=== PATIENT | female | born 1960 | race Caucasian/White ===

== ENCOUNTER → 2018-03-25 | Outpatient (CLI) | payer OTHER ==
[~2018-03-25] MED LIST: SYNTHROID175 MCG PO
== END | disposition home or self-care (01) ==
LOC: MRI 13:25
DX: M25.572 Pain in left ankle and joints of left foot (principal); M25.562 Pain in left knee
CPT/HCPCS: 73718; 73721

== ENCOUNTER 2018-09-29 07:25 | Outpatient (CLI) | payer OTHER | END 2018-09-29 07:43 | disposition home or self-care (01) | LOC: RAD 07:25 | DX: M25.561 Pain in right knee (principal); M25.562 Pain in left knee | CPT/HCPCS: 73718 ==

== ENCOUNTER 2018-10-14 12:27 | Inpatient (IN) | payer OTHER ==
[~2018-10-14] VITALS: Ht 162.6 cm; Wt 90.7 kg
[2018-10-27] MEDS ORDERED: CALCIUM 500 +1 EAC2 PO (10:02)
[2018-10-27] MEDS ORDERED: JENTADUETO 2.51 EAC2 PO (10:02)
[2018-10-27] MEDS ORDERED: CRESTOR5 MG PO (10:02)
[2018-10-27] MEDS ORDERED: VITAMIN D35000 UNI1 PO (10:03)
[2018-10-27] MEDS ORDERED: VITAMIN E400 UNI6 PO (10:03)
== END 2018-11-05 15:20 | disposition home or self-care (01) | DRG 470 ==
LOC: O/R 11-03 07:52 → SURG 11-03 07:52 → SURH 11-03 13:30 → SURG 11-03 14:12
PROVIDERS: ADMIT Orthopaedic Surgery
PROC: 0SRD0J9 Replacement of Left Knee Joint with Synthetic Substitute, Cemented, Open Approach (ICD-10-PCS; principal; 2018-11-03 13:30)
DX: M17.12 Unilateral primary osteoarthritis, left knee (principal); D62 Acute posthemorrhagic anemia; E03.8 Other specified hypothyroidism; E11.9 Type 2 diabetes mellitus without complications; E78.00 Pure hypercholesterolemia, unspecified; E66.8 Other obesity

== ENCOUNTER → 2018-10-26 08:13 | Outpatient (CLI) | payer OTHER ==
[~2018-10-26 08:13] MED LIST changes: +CALCIUM 500 +1 EAC2 PO; +CRESTOR5 MG PO; +JENTADUETO 2.51 EAC2 PO; +VITAMIN D35000 UNI1 PO; +VITAMIN E400 UNI6 PO
== END | disposition home or self-care (01) ==
LOC: LAB 08:13
DX: D68.8 Other specified coagulation defects (principal); E78.2 Mixed hyperlipidemia; N39.0 Urinary tract infection, site not specified; R07.89 Other chest pain

== ENCOUNTER 2019-02-03 15:05 | Outpatient (CLI) | payer OTHER | END 2019-02-03 15:13 | disposition home or self-care (01) | LOC: RAD 15:05 | DX: M17.12 Unilateral primary osteoarthritis, left knee (principal) ==

== ENCOUNTER 2019-02-27 07:38 | Outpatient (CLI) | payer OTHER | END 2019-02-27 08:19 | disposition home or self-care (01) | LOC: LAB 07:38 | DX: I11.0 Hypertensive heart disease with heart failure (principal); D53.8 Other specified nutritional anemias; N39.0 Urinary tract infection, site not specified; E78.2 Mixed hyperlipidemia; E11.65 Type 2 diabetes mellitus with hyperglycemia; E04.8 Other specified nontoxic goiter; E55.9 Vitamin D deficiency, unspecified ==

== ENCOUNTER 2019-03-18 08:20 | Outpatient (CLI) | payer OTHER | END 2019-03-18 12:59 | disposition home or self-care (01) | LOC: NUCLEAR 08:20 | DX: I87.2 Venous insufficiency (chronic) (peripheral) (principal) ==

== ENCOUNTER 2019-08-11 13:11 | Outpatient (CLI) | payer OTHER ==
[2019-08-12] MEDS ORDERED: METFORMIN HCL500 M3 PO (09:35)
== END 2019-08-11 13:18 | disposition home or self-care (01) ==
LOC: EKG 13:11
DX: I10 Essential (primary) hypertension (principal); R07.89 Other chest pain; Z01.818 Encounter for other preprocedural examination

== ENCOUNTER 2019-08-12 06:36 | Outpatient (CLI) | payer OTHER ==
[2019-08-12] MEDS ORDERED: METFORMIN HCL500 M3 PO (09:35)
== END 2019-08-12 06:48 | disposition home or self-care (01) ==
LOC: LAB 06:36
DX: D68.8 Other specified coagulation defects (principal); E78.2 Mixed hyperlipidemia; N39.0 Urinary tract infection, site not specified

== ENCOUNTER 2019-08-17 05:12 | Day surgery (SDC) | payer OTHER ==
[~2019-08-17 05:12] MED LIST changes: +METFORMIN HCL500 M3 PO
[2019-08-17] MEDS ORDERED: PERCOCET 5-3251 EACH PO (09:39)
[2019-08-17] MEDS ORDERED: NABUMETONE750 MG PO (09:42)
== END 2019-08-17 12:55 | disposition home or self-care (01) ==
LOC: CIR.AMB 05:12 → ADM 10:30 → CIR.AMB 12:55
DX: T84.89XA Other specified complication of internal orthopedic prosthetic devices, implants and grafts, initial encounter (principal); M24.662 Ankylosis, left knee

== ENCOUNTER 2019-08-30 07:20 | Emergency (ER) | payer OTHER ==
[~2019-08-30] VITALS: Ht 165.1 cm; Wt 91.6 kg
[~2019-08-30 07:20] MED LIST changes: +NABUMETONE750 MG PO; +PERCOCET 5-3251 EACH PO
[2019-08-30] MEDS ORDERED: KETO10TA2 PO (11:54)
== END 2019-08-30 13:52 | disposition home or self-care (01) ==
LOC: ER 07:20
DX: S82.61XA Displaced fracture of lateral malleolus of right fibula, initial encounter for closed fracture (principal); M25.551 Pain in right hip; W18.09XA Striking against other object with subsequent fall, initial encounter; Y93.89 Activity, other specified; Y92.018 Other place in single-family (private) house as the place of occurrence of the external cause; Y99.8 Other external cause status

== ENCOUNTER → 2019-12-01 | Outpatient (CLI) | payer OTHER ==
[~2019-12-01] MED LIST changes: +KETO10TA2 PO
== END | disposition home or self-care (01) ==
LOC: TOM 09-29 08:31 → NUCLEAR 09-29 09:00 → TOM 09-29 09:00
DX: M25.562 Pain in left knee (principal)

== ENCOUNTER 2019-12-10 09:00 | Outpatient (CLI) | payer OTHER | END 2019-12-10 09:02 | disposition home or self-care (01) | LOC: RAD 09:00 | DX: R07.89 Other chest pain (principal) ==

== ENCOUNTER 2019-12-26 08:04 | Outpatient (CLI) | payer OTHER | END 2019-12-26 15:00 | disposition home or self-care (01) | LOC: LAB 08:04 | PROVIDERS: ATTEND Orthopaedic Surgery | DX: R64 Cachexia (principal); T84.032A Mechanical loosening of internal right knee prosthetic joint, initial encounter ==

== ENCOUNTER 2019-12-27 07:48 | Outpatient (CLI) | payer OTHER | END 2019-12-27 07:58 | disposition home or self-care (01) | LOC: NUCLEAR 07:48 | PROVIDERS: ATTEND Orthopaedic Surgery | DX: T84.84XA Pain due to internal orthopedic prosthetic devices, implants and grafts, initial encounter (principal) | CPT/HCPCS: 78315; A9503 ==

== ENCOUNTER 2020-01-05 07:17 | Outpatient (CLI) | payer OTHER | END 2020-01-05 07:40 | disposition home or self-care (01) | LOC: NUCLEAR 07:17 | PROVIDERS: ATTEND Orthopaedic Surgery | DX: T84.033A Mechanical loosening of internal left knee prosthetic joint, initial encounter (principal) | CPT/HCPCS: 78802; A9556 ==

== ENCOUNTER 2020-02-08 13:23 | Outpatient (CLI) | payer OTHER | END 2020-02-08 13:30 | disposition home or self-care (01) | LOC: LAB 13:23 | PROVIDERS: ATTEND Internal Medicine Endocrinology, Diabetes & Metabolism | DX: I11.0 Hypertensive heart disease with heart failure (principal); D53.8 Other specified nutritional anemias; N39.0 Urinary tract infection, site not specified; E78.2 Mixed hyperlipidemia; E11.9 Type 2 diabetes mellitus without complications; N36.2 Urethral caruncle; M06.1 Adult-onset Still's disease; E04.0 Nontoxic diffuse goiter ==

== ENCOUNTER 2020-02-11 10:30 | Inpatient (IN) | payer OTHER ==
[~2020-02-11] VITALS: Ht 162.6 cm; Wt 90.7 kg
[2020-02-15] MEDS ORDERED: JANUMET 50-1,01 EACH PO (16:06)
[2020-02-15] MEDS ORDERED: DUI500 PO (16:06)
[2020-02-15] MEDS ORDERED: CIPRO500 MG PO (16:07)
[2020-02-15] MEDS ORDERED: ROSUVASTATIN CAL5 MG PO (16:07)
[2020-02-15] MEDS ORDERED: GABAPENTIN300 M2 PO (16:08)
[2020-02-17] MEDS ORDERED: DUI500 PO (13:54)
[2020-02-17] MEDS ORDERED: PERCOCET 5-3251 EACH PO (13:54)
[2020-02-17] MEDS ORDERED: ELIQUIS2.5 MG PO (13:54)
== END 2020-02-17 17:58 | DRG 467 ==
LOC: O/R 02-15 05:45 → SURG 02-15 05:45 → O/R 02-15 10:30 → SURG 02-15 13:03 → O/R 02-15 16:00 → SURG 02-17 17:58
PROVIDERS: ADMIT Orthopaedic Surgery; ATTEND Orthopaedic Surgery
PROC: 0SND0ZZ Release Left Knee Joint, Open Approach (ICD-10-PCS; 2020-02-15)
PROC: 0QRC07Z Replacement of Left Lower Femur with Autologous Tissue Substitute, Open Approach (ICD-10-PCS; 2020-02-15)
PROC: 0SWD0JZ Revision of Synthetic Substitute in Left Knee Joint, Open Approach (ICD-10-PCS; principal; 2020-02-15 16:00)
DX: T84.033A Mechanical loosening of internal left knee prosthetic joint, initial encounter (principal); D62 Acute posthemorrhagic anemia; E11.9 Type 2 diabetes mellitus without complications; T84.018A Broken internal joint prosthesis, other site, initial encounter; E03.8 Other specified hypothyroidism; E78.00 Pure hypercholesterolemia, unspecified; E66.9 Obesity, unspecified; M17.12 Unilateral primary osteoarthritis, left knee; M85.462 Solitary bone cyst, left tibia and fibula; M25.662 Stiffness of left knee, not elsewhere classified; Z20.828 Contact with and (suspected) exposure to other viral communicable diseases

== ENCOUNTER 2020-04-04 05:45 | Day surgery (SDC) | payer OTHER ==
[~2020-04-04 05:45] MED LIST changes: +CIPRO500 MG PO; +DUI500 PO; +ELIQUIS2.5 MG PO; +GABAPENTIN300 M2 PO; +JANUMET; +JANUMET 50-1,01 EACH PO; +ROSUVASTATIN CAL5 MG PO
[2020-04-04] MEDS ORDERED: PERCOCET 5-3251 EACH PO ×2 (11:57→12:05)
== END 2020-04-04 14:27 | disposition home or self-care (01) ==
LOC: CIR.AMB 05:45
PROVIDERS: ATTEND Orthopaedic Surgery
DX: M24.562 Contracture, left knee (principal); M24.662 Ankylosis, left knee; Z96.652 Presence of left artificial knee joint; Z20.828 Contact with and (suspected) exposure to other viral communicable diseases

== ENCOUNTER 2020-07-14 09:25 | Outpatient (CLI) | payer OTHER | END 2020-07-14 09:49 | disposition home or self-care (01) | LOC: MRI 09:25 | PROVIDERS: ATTEND Orthopaedic Surgery | DX: M48.07 Spinal stenosis, lumbosacral region (principal); M54.5 Low back pain | CPT/HCPCS: 72148 ==

== ENCOUNTER → 2020-08-16 08:00 | Outpatient (CLI) | payer OTHER ==
[~2020-08-16 08:00] MED LIST changes: +METFORMIN HCL500 M2 PO
== END | disposition home or self-care (01) ==
LOC: ADM 07:15 → LAB 08:00 → CIR.AMB 08-22 07:15 → EDSTATUS 08-22 07:15 → CIR.AMB 08-22 10:30
PROVIDERS: ATTEND Orthopaedic Surgery
DX: Z20.828 Contact with and (suspected) exposure to other viral communicable diseases (principal); M24.562 Contracture, left knee; D68.8 Other specified coagulation defects

== ENCOUNTER 2020-09-09 11:08 | Emergency (ER) | payer OTHER ==
[~2020-09-09] VITALS: Ht 165.1 cm; Wt 88.9 kg
== END 2020-09-09 15:28 | disposition home or self-care (01) ==
LOC: ER 11:08
DX: S80.02XA Contusion of left knee, initial encounter (principal); M25.562 Pain in left knee; W23.0XXA Caught, crushed, jammed, or pinched between moving objects, initial encounter; Y93.89 Activity, other specified; Y92.69 Other specified industrial and construction area as the place of occurrence of the external cause; Y99.8 Other external cause status

== ENCOUNTER 2025-05-27 10:57 | Outpatient (CLI) | payer OTHER | END 2025-05-27 11:04 | disposition home or self-care (01) | LOC: MRI 10:57 | PROVIDERS: ATTEND Internal Medicine Endocrinology, Diabetes & Metabolism | DX: M54.51 Vertebrogenic low back pain (principal); E11.9 Type 2 diabetes mellitus without complications; E04.9 Nontoxic goiter, unspecified | CPT/HCPCS: 72148 ==